=== PATIENT | female | born 1960 | race Caucasian/White ===

== ENCOUNTER 2019-08-22 12:01 | Inpatient (IN) ==
[2019-08-22] MEDS ORDERED: *HR* Promethazine 25 MG/ML VIAL IVP PRN (14:40)
[2019-08-22] MEDS ORDERED: Ondansetron ODT 4 MG TAB.RAPDIS SL PRN (14:40)
[2019-08-22] MEDS ORDERED: Naloxone 0.4 MG/ML INJ IVP PRN (14:40)
[2019-08-22] MEDS ORDERED: Ipratropium/Albuterol Neb 3 ML IH PRN (14:43)
[2019-08-22 15:06] LABS: ABG Base Excess 4 mEq/L (-2 to 3); ABG HCO3 31 mEq/L (21-27); ABG Oxygen Saturation 90 % (95-98); ABG PCO2 53 mmHg (35-45); ABG PH 7.37 pH Units (7.32-7.45); ABG PO2 63 mmHg (85-104); ABG TCO2 32 mEq/L (20-26)
[2019-08-22] MEDS ORDERED: 0.9 % Sodium Chloride 500 ML IVC ONE (17:29)
[2019-08-22] MEDS: Ampicillin/Sulbactam 1,500 MG in 0.9 % Sodium Chloride Mini Bag 100 ML IVPB SCH ×2 (17:31→23:21)
[2019-08-22] MEDS: *HR* Heparin 5,000 UNIT/ML VIAL SQ SCH (17:31)
[2019-08-22] MEDS ORDERED: 0.9 % Sodium Chloride 1,000 ML IVC ONE (18:38)
[2019-08-22] MEDS: Mirtazapine 15 MG TABLET PO SCH (20:40)
[2019-08-23 02:32] LABS: Hematocrit 32.7 % (35.3-44.9); Mean Corpuscular HGB Conc 30.6 g/dL (31.6-35.5); Mean Corpuscular Hemoglobin 31.7 pg (28.0-33.3); Mean Corpuscular Volume 103.8 fL (83.0-100.0); Platelet Count 161 K/mcL (140-400); Red Blood Count 3.15 M/mcL (3.82-4.97); Red Cell Distribution Width 12.9 % (11.5-14.5); White Blood Count 4.6 K/mcL (4.3-11.1)
[2019-08-23 02:47] LABS: BUN/Creatinine Ratio 46 (6-26); Blood Urea Nitrogen 17 mg/dL (8-23); Calcium 8.2 mg/dL (8.6-10.3); Carbon Dioxide 21 mEq/L (23-29); Chloride 113 mEq/L (98-107); Glucose 201 mg/dL (70-105); Osmolality,Calculated 297 (280-300); Sodium 140 mEq/L (136-145); eGFR For African Americans > 60 (> 60); eGFR For Non-African Americans > 60 (> 60)
[2019-08-23 03:21] LABS: Folate > 22.3 ng/mL (3.0-16.0); Vitamin B12 373 pg/mL (250-1100)
[2019-08-23] MEDS: Ampicillin/Sulbactam 1,500 MG in 0.9 % Sodium Chloride Mini Bag 100 ML IVPB SCH ×3 (05:08→17:12)
[2019-08-23] MEDS: *HR* Heparin 5,000 UNIT/ML VIAL SQ SCH ×2 (05:09→17:13)
[2019-08-23 09:03] LABS: ABG Base Excess 3 mEq/L (-2 to 3); ABG HCO3 29 mEq/L (21-27); ABG Oxygen Saturation 86 % (95-98); ABG PCO2 51 mmHg (35-45); ABG PH 7.37 pH Units (7.32-7.45); ABG PO2 55 mmHg (85-104); ABG TCO2 31 mEq/L (20-26)
[2019-08-23] MEDS: Aspirin Enteric Coated 81 MG Tablet PO SCH (11:18)
[2019-08-23 12:18] LABS: Adenovirus Not Detected (Not Detect); Bordetella Pertussis Not Detected (Not Detect); Chlamydophila pneumoniae Not Detected (Not Detect); Coronavirus 229E Not Detected (Not Detect); Coronavirus HKU1 Not Detected (Not Detect); Coronavirus NL63 Not Detected (Not Detect); Coronavirus OC43 Not Detected (Not Detect); Human Metapneumovirus Not Detected (Not Detect); Human Rhinovirus/Enterovirus Not Detected (Not Detect); Influenza A Subtype 2009 H1 Not Detected (Not Detect); Influenza B Not Detected (Not Detect); Mycoplasma pneumoniae Not Detected (Not Detect); Parainfluenza Virus 1 Not Detected (Not Detect); Parainfluenza Virus 2 Not Detected (Not Detect); Parainfluenza Virus 3 Not Detected (Not Detect); Parainfluenza Virus 4 Not Detected (Not Detect); Respiratory Syncytial Virus Not Detected (Not Detect)
[2019-08-23] MEDS: Lactobacillus 1 EACH CAP.SPRINK PO SCH (20:33)
[2019-08-23] MEDS: Mirtazapine 15 MG TABLET PO SCH (20:34)
[2019-08-24] MEDS: Ampicillin/Sulbactam 1,500 MG in 0.9 % Sodium Chloride Mini Bag 100 ML IVPB SCH ×5 (01:40→23:10)
[2019-08-24 02:48] LABS: Basophils % 0.4 %; Eosinophils # 0.1 K/mcL (0.0-0.6); Eosinophils % 2.8 %; Hematocrit 32.4 % (35.3-44.9); Hemoglobin 9.6 g/dL (11.5-15.4); Immature Granulocytes % 0.2 % (0-4); Lymphocytes % 21.9 %; Mean Corpuscular HGB Conc 29.6 g/dL (31.6-35.5); Mean Corpuscular Hemoglobin 31.6 pg (28.0-33.3); Mean Corpuscular Volume 106.6 fL (83.0-100.0); Mean Platelet Volume 9.3 fL (9.4-12.4); Monocytes # 0.2 K/mcL (0.0-1.3); Monocytes % 4.6 %; Neutrophils # 3.2 K/mcL (1.6-8.9); Platelet Count 183 K/mcL (140-400); Red Blood Count 3.04 M/mcL (3.82-4.97); Red Cell Distribution Width 13.2 % (11.5-14.5); Segmented Neutrophils % 70.1 %; White Blood Count 4.6 K/mcL (4.3-11.1)
[2019-08-24 03:09] LABS: % Iron Saturation 12 % (15-50); BUN/Creatinine Ratio 29 (6-26); Blood Urea Nitrogen 12 mg/dL (8-23); Calcium 8.7 mg/dL (8.6-10.3); Carbon Dioxide 28 mEq/L (23-29); Chloride 116 mEq/L (98-107); Glucose 74 mg/dL (70-105); Iron 35 mcg/dL (50-170); Magnesium 1.9 mg/dL (1.6-2.6); Osmolality,Calculated 300 (280-300); Potassium 3.9 mEq/L (3.5-5.1); Sodium 146 mEq/L (136-145); Transferrin 201 mg/dL (203-362); eGFR For African Americans > 60 (> 60); eGFR For Non-African Americans > 60 (> 60)
[2019-08-24 03:28] LABS: Ferritin 97 ng/mL (10-120)
[2019-08-24] MEDS: *HR* Heparin 5,000 UNIT/ML VIAL SQ SCH ×2 (06:23→16:27)
[2019-08-24] MEDS: Aspirin Enteric Coated 81 MG Tablet PO SCH (07:26)
[2019-08-24] MEDS: Lactobacillus 1 EACH CAP.SPRINK PO SCH ×2 (07:26→19:48)
[2019-08-24] MEDS: Mirtazapine 15 MG TABLET PO SCH (19:48)
[2019-08-25 00:42] LABS: Adenovirus F 40/41 PCR Not detected (Not detect); Astrovirus PCR Not detected (Not detect); C.difficile Toxin A/B Gene PCR Not detected (Not detect); Campylobacter by PCR Not detected (Not detect); Cryptosporidium by PCR Not detected (Not detect); Cyclospora cayetanensis PCR Not detected (Not detect); E. coli O157 by PCR Not detected (Not detect); Entamoeba histolytica PCR Not detected (Not detect); Enteroaggregative E.coli(EAEC) Not detected (Not detect); Enteropathogenic E.coli(EPEC) Not detected (Not detect); Enterotoxigenic E.coli (ETEC) Not detected (Not detect); Giardia lamblia PCR Not detected (Not detect); Norovirus GI/GII PCR Not detected (Not detect); Plesiomonas shigelloides PCR Not detected (Not detect); Rotavirus A PCR Not detected (Not detect); Salmonella PCR Not detected (Not detect); Sapovirus PCR Not detected (Not detect); Shig/EnteroinvasiveE coli EIEC Not detected (Not detect); Shigalike tox-prod E coli STEC Not detected (Not detect); Vibrio PCR Not detected (Not detect); Vibrio cholerae PCR Not detected (Not detect); Yersinia enterocolitica PCR Not detected (Not detect)
[2019-08-25 02:29] LABS: Basophils % 0.4 %; Eosinophils # 0.2 K/mcL (0.0-0.6); Immature Granulocytes % 0.4 % (0-4); Lymphocytes # 0.5 K/mcL (0.6-4.6); Lymphocytes % 9.3 %; Mean Corpuscular HGB Conc 29.4 g/dL (31.6-35.5); Mean Corpuscular Hemoglobin 31.6 pg (28.0-33.3); Mean Corpuscular Volume 107.6 fL (83.0-100.0); Mean Platelet Volume 9.2 fL (9.4-12.4); Monocytes # 0.3 K/mcL (0.0-1.3); Monocytes % 5.9 %; Neutrophils # 4.2 K/mcL (1.6-8.9); Platelet Count 175 K/mcL (140-400); Red Blood Count 3.16 M/mcL (3.82-4.97); Red Cell Distribution Width 12.9 % (11.5-14.5); White Blood Count 5.3 K/mcL (4.3-11.1)
[2019-08-25 02:49] LABS: BUN/Creatinine Ratio 18 (6-26); Blood Urea Nitrogen 6 mg/dL (8-23); Calcium 8.7 mg/dL (8.6-10.3); Carbon Dioxide 31 mEq/L (23-29); Chloride 111 mEq/L (98-107); Glucose 75 mg/dL (70-105); Magnesium 1.8 mg/dL (1.6-2.6); Osmolality,Calculated 298 (280-300); Potassium 3.9 mEq/L (3.5-5.1); Sodium 146 mEq/L (136-145); eGFR For African Americans > 60 (> 60); eGFR For Non-African Americans > 60 (> 60)
[2019-08-25] MEDS: Ampicillin/Sulbactam 1,500 MG in 0.9 % Sodium Chloride Mini Bag 100 ML IVPB SCH ×2 (05:42→12:31)
[2019-08-25] MEDS: *HR* Heparin 5,000 UNIT/ML VIAL SQ SCH ×2 (05:42→17:32)
[2019-08-25] MEDS: Lactobacillus 1 EACH CAP.SPRINK PO SCH ×2 (07:50→20:25)
[2019-08-25] MEDS: Aspirin Enteric Coated 81 MG Tablet PO SCH (07:50)
[2019-08-25] MEDS ORDERED: Aminoglycoside Consult 1 EACH MC ONE (09:14)
[2019-08-25] MEDS ORDERED: Furosemide 20 MG/2 ML VIAL IVP ONE (10:38)
[2019-08-25] MEDS: Piperacillin/Tazobactam 3.375 GM in 0.9 % Sodium Chloride Mini Bag 100 ML IVPB SCH ×2 (17:32→23:49)
[2019-08-25] MEDS: Mirtazapine 15 MG TABLET PO SCH (20:25)
[2019-08-26 04:08] LABS: BUN/Creatinine Ratio 33 (6-26); Basophils % 0.2 %; Blood Urea Nitrogen 13 mg/dL (8-23); Calcium 8.8 mg/dL (8.6-10.3); Carbon Dioxide 33 mEq/L (23-29); Chloride 111 mEq/L (98-107); Glucose 107 mg/dL (70-105); Magnesium 1.8 mg/dL (1.6-2.6); Mean Corpuscular HGB Conc 29.7 g/dL (31.6-35.5); Osmolality,Calculated 307 (280-300); Potassium 3.6 mEq/L (3.5-5.1); Sodium 148 mEq/L (136-145); eGFR For African Americans > 60 (> 60); eGFR For Non-African Americans > 60 (> 60)
[2019-08-26 04:10] LABS: Eosinophils # 0.2 K/mcL (0.0-0.6); Eosinophils % 5.3 %; Hematocrit 33.7 % (35.3-44.9); Immature Granulocytes % 0.4 % (0-4); Lymphocytes # 0.7 K/mcL (0.6-4.6); Lymphocytes % 15.8 %; Mean Corpuscular Hemoglobin 31.7 pg (28.0-33.3); Monocytes # 0.3 K/mcL (0.0-1.3); Monocytes % 6.1 %; Neutrophils # 3.3 K/mcL (1.6-8.9); Platelet Count 159 K/mcL (140-400); Red Blood Count 3.15 M/mcL (3.82-4.97); Red Cell Distribution Width 13.1 % (11.5-14.5); Segmented Neutrophils % 72.2 %; White Blood Count 4.6 K/mcL (4.3-11.1)
[2019-08-26 04:36] LABS: Platelet Estimate Normal (Normal)
[2019-08-26] MEDS: *HR* Heparin 5,000 UNIT/ML VIAL SQ SCH ×2 (05:06→18:00)
[2019-08-26] MEDS: Piperacillin/Tazobactam 3.375 GM in 0.9 % Sodium Chloride Mini Bag 100 ML IVPB SCH ×2 (09:56→18:00)
[2019-08-26] MEDS: Aspirin Enteric Coated 81 MG Tablet PO SCH (09:56)
[2019-08-26] MEDS: Lactobacillus 1 EACH CAP.SPRINK PO SCH ×2 (09:56→20:16)
[2019-08-26] MEDS: D5% in 0.2% NACL 500 ML IVC SCH (09:57)
[2019-08-26 18:50] LABS: BUN/Creatinine Ratio 31 (6-26); Blood Urea Nitrogen 11 mg/dL (8-23); Carbon Dioxide 33 mEq/L (23-29); Chloride 110 mEq/L (98-107); Glucose 114 mg/dL (70-105); Osmolality,Calculated 306 (280-300); Potassium 3.5 mEq/L (3.5-5.1); Sodium 148 mEq/L (136-145); eGFR For African Americans > 60 (> 60); eGFR For Non-African Americans > 60 (> 60)
[2019-08-26] MEDS: Mirtazapine 15 MG TABLET PO SCH (20:16)
[2019-08-27] MEDS: Piperacillin/Tazobactam 3.375 GM in 0.9 % Sodium Chloride Mini Bag 100 ML IVPB SCH ×3 (00:32→14:59)
[2019-08-27 03:03] LABS: Red Cell Distribution Width 13.2 % (11.5-14.5)
[2019-08-27 03:05] LABS: Basophils % 0.5 %; Eosinophils # 0.5 K/mcL (0.0-0.6); Eosinophils % 10.9 %; Hematocrit 32.6 % (35.3-44.9); Hemoglobin 9.6 g/dL (11.5-15.4); Immature Granulocytes % 0.5 % (0-4); Immature Platelets 1.8 % (1.1-6.1); Lymphocytes # 0.7 K/mcL (0.6-4.6); Lymphocytes % 16.3 %; Mean Corpuscular HGB Conc 29.4 g/dL (31.6-35.5); Mean Corpuscular Hemoglobin 31.3 pg (28.0-33.3); Mean Corpuscular Volume 106.2 fL (83.0-100.0); Mean Platelet Volume 9.4 fL (9.4-12.4); Monocytes # 0.2 K/mcL (0.0-1.3); Monocytes % 4.5 %; Platelet Count 154 K/mcL (140-400); Red Blood Count 3.07 M/mcL (3.82-4.97); Segmented Neutrophils % 67.3 %; White Blood Count 4.4 K/mcL (4.3-11.1)
[2019-08-27 03:25] LABS: BUN/Creatinine Ratio 21 (6-26); Blood Urea Nitrogen 8 mg/dL (8-23); Carbon Dioxide 35 mEq/L (23-29); Chloride 110 mEq/L (98-107); Glucose 99 mg/dL (70-105); Magnesium 1.9 mg/dL (1.6-2.6); Osmolality,Calculated 302 (280-300); Potassium 3.5 mEq/L (3.5-5.1); Sodium 147 mEq/L (136-145); eGFR For African Americans > 60 (> 60); eGFR For Non-African Americans > 60 (> 60)
[2019-08-27] MEDS: D5% in 0.2% NACL 500 ML IVC SCH (04:46)
[2019-08-27] MEDS: *HR* Heparin 5,000 UNIT/ML VIAL SQ SCH (04:46)
[2019-08-27] MEDS: Lactobacillus 1 EACH CAP.SPRINK PO SCH ×2 (08:08→22:16)
[2019-08-27] MEDS: Aspirin Enteric Coated 81 MG Tablet PO SCH (08:09)
[2019-08-27] MEDS: Mirtazapine 15 MG TABLET PO SCH (22:17)
[2019-08-28] MEDS: Piperacillin/Tazobactam 3.375 GM in 0.9 % Sodium Chloride Mini Bag 100 ML IVPB SCH ×4 (00:18→23:32)
[2019-08-28] MEDS: D5% in 0.2% NACL 500 ML IVC SCH (00:18)
[2019-08-28] MEDS: Aspirin Enteric Coated 81 MG Tablet PO SCH (07:58)
[2019-08-28] MEDS: Lactobacillus 1 EACH CAP.SPRINK PO SCH ×2 (07:58→20:10)
[2019-08-28] MEDS: *HR* Enoxaparin 40 MG/0.4 ML SYRINGE SQ SCH (07:59)
[2019-08-28 10:55] LABS: Mean Corpuscular Hemoglobin 31.4 pg (28.0-33.3); Red Blood Count 2.87 M/mcL (3.82-4.97)
[2019-08-28 10:57] LABS: Hematocrit 30.4 % (35.3-44.9); Immature Platelets 2.1 % (1.1-6.1); Mean Corpuscular HGB Conc 29.6 g/dL (31.6-35.5); Mean Corpuscular Volume 105.9 fL (83.0-100.0); Mean Platelet Volume 10.6 fL (9.4-12.4); Red Cell Distribution Width 13.1 % (11.5-14.5)
[2019-08-28 11:53] LABS: White Blood Count 4.6 K/mcL (4.3-11.1)
[2019-08-28 12:51] LABS: BUN/Creatinine Ratio 13 (6-26); Blood Urea Nitrogen 5 mg/dL (8-23); Carbon Dioxide 33 mEq/L (23-29); Chloride 109 mEq/L (98-107); Glucose 125 mg/dL (70-105); Magnesium 1.9 mg/dL (1.6-2.6); Osmolality,Calculated 303 (280-300); Phosphorous 2.6 mg/dL (2.7-4.5); Potassium 3.2 mEq/L (3.5-5.1); Sodium 147 mEq/L (136-145); eGFR For African Americans > 60 (> 60); eGFR For Non-African Americans > 60 (> 60)
[2019-08-28] MEDS ORDERED: Potassium Phosphate 44 MEQ in 0.9 % Sodium Chloride 250 ML IVPB ONE (15:24)
[2019-08-28] MEDS ORDERED: D5% in 0.2% NACL 500 ML IVC SCH (20:00)
[2019-08-28] MEDS: Mirtazapine 15 MG TABLET PO SCH (20:10)
[2019-08-29 02:03] LABS: BUN/Creatinine Ratio 15 (6-26); Blood Urea Nitrogen 6 mg/dL (8-23); Calcium 8.8 mg/dL (8.6-10.3); Carbon Dioxide 32 mEq/L (23-29); Chloride 109 mEq/L (98-107); Glucose 95 mg/dL (70-105); Osmolality,Calculated 299 (280-300); Potassium 4.8 mEq/L (3.5-5.1); Sodium 146 mEq/L (136-145); eGFR For African Americans > 60 (> 60); eGFR For Non-African Americans > 60 (> 60)
[2019-08-29] MEDS: Piperacillin/Tazobactam 3.375 GM in 0.9 % Sodium Chloride Mini Bag 100 ML IVPB SCH (08:34)
[2019-08-29] MEDS: Lactobacillus 1 EACH CAP.SPRINK PO SCH ×2 (08:34→20:12)
[2019-08-29] MEDS: *HR* Enoxaparin 40 MG/0.4 ML SYRINGE SQ SCH (08:34)
[2019-08-29] MEDS: Aspirin Enteric Coated 81 MG Tablet PO SCH (08:34)
[2019-08-29] MEDS ORDERED: E-Z-PAQUE (BARIUM SULF) SUSP 1 BOTTLE PO ONE (13:44)
[2019-08-29] MEDS ORDERED: E-Z-HD (BARIUM SULF) SUSPENSION PO ONE (13:44)
[2019-08-29] MEDS: Piperacillin/Tazobactam 3.375 GM in D5% in Water (Mini-Bag+) 100 ML IVPB SCH ×2 (16:40→23:14)
[2019-08-29] MEDS ORDERED: Amoxicillin/Clavulanate 400 MG/5 ML UDC PO SCH (18:00)
[2019-08-29] MEDS: Mirtazapine 15 MG TABLET PO SCH (20:12)
[2019-08-30 02:33] LABS: BUN/Creatinine Ratio 18 (6-26); Blood Urea Nitrogen 10 mg/dL (8-23); Carbon Dioxide 34 mEq/L (23-29); Chloride 104 mEq/L (98-107); Glucose 98 mg/dL (70-105); Magnesium 1.9 mg/dL (1.6-2.6); Osmolality,Calculated 293 (280-300); Phosphorous 3.9 mg/dL (2.7-4.5); Potassium 4.1 mEq/L (3.5-5.1); Sodium 142 mEq/L (136-145); eGFR For African Americans > 60 (> 60); eGFR For Non-African Americans > 60 (> 60)
[2019-08-30 08:00] LABS: Basophils % 0.4 %; Eosinophils # 0.6 K/mcL (0.0-0.6); Eosinophils % 11.5 %; Hematocrit 31.9 % (35.3-44.9); Hemoglobin 9.3 g/dL (11.5-15.4); Immature Granulocytes % 0.2 % (0-4); Lymphocytes # 0.9 K/mcL (0.6-4.6); Lymphocytes % 17.7 %; Mean Corpuscular HGB Conc 29.2 g/dL (31.6-35.5); Mean Corpuscular Hemoglobin 31.3 pg (28.0-33.3); Mean Corpuscular Volume 107.4 fL (83.0-100.0); Mean Platelet Volume 10.6 fL (9.4-12.4); Monocytes # 0.3 K/mcL (0.0-1.3); Monocytes % 5.6 %; Neutrophils # 3.1 K/mcL (1.6-8.9); Platelet Count 162 K/mcL (140-400); Red Blood Count 2.97 M/mcL (3.82-4.97); Red Cell Distribution Width 13.1 % (11.5-14.5); Segmented Neutrophils % 64.6 %; White Blood Count 4.8 K/mcL (4.3-11.1)
[2019-08-30] MEDS: Lactobacillus 1 EACH CAP.SPRINK PO SCH (08:24)
[2019-08-30] MEDS: *HR* Enoxaparin 40 MG/0.4 ML SYRINGE SQ SCH (08:24)
[2019-08-30] MEDS: Piperacillin/Tazobactam 3.375 GM in D5% in Water (Mini-Bag+) 100 ML IVPB SCH (08:24)
[2019-08-30] MEDS: Aspirin Enteric Coated 81 MG Tablet PO SCH (08:24)
[2019-08-30 11:18] VITALS: BP 94/60
== END 2019-08-30 14:35 | DRG 137 ==
LOC: 2ANU → SUATTDRO 13:38 → 2NNU 08-23 14:54 → SUATTDRO 08-23 14:55 → 2ANU 08-28 12:08
PROVIDERS: ADMIT Family Medicine; ATTEND Internal Medicine